=== PATIENT | male | born 1960 | race Caucasian/White ===

== ENCOUNTER 2021-06-13 14:15 | Observation (INO) ==
[2021-06-13] MEDS ORDERED: ALUMINUM/MAGNES/SIMETH MAX STR 30 ML UDCUP PO PRN (14:20)
[2021-06-13] MEDS ORDERED: NICOTINE 21 MG/24 HR PATCH TRANSDERM PRN (14:20)
[2021-06-13] MEDS ORDERED: ZALEPLON 5 MG CAPSULE PO PRN (14:20)
[2021-06-13] MEDS ORDERED: PROMETHAZINE 25 MG TABLET PO PRN (14:20)
[2021-06-13] MEDS ORDERED: MAGNESIUM SULF RIDER 2 GM/50 ML PREMIX IV PRN (14:20)
[2021-06-13] MEDS ORDERED: ONDANSETRON 4 MG/2 ML VIAL IV PRN (14:20)
[2021-06-13] MEDS ORDERED: guaiFENesin/DM ER 600-30 MG TABLET PO PRN (14:20)
[2021-06-13] MEDS ORDERED: DOCUSATE SODIUM 100 MG CAPSULE PO PRN (14:20)
[2021-06-13] MEDS ORDERED: ACETAMINOPHEN 325 MG TABLET PO PRN (14:20)
[2021-06-13] MEDS ORDERED: hydrALAZINE 20 MG/1 ML VIAL IV PRN (14:20)
[2021-06-13] MEDS ORDERED: MORPHINE 2 MG/1 ML SYRINGE IV PRN (14:20)
[2021-06-13] MEDS ORDERED: MAGNESIUM SULF RIDER 4 GM/100 ML PREMIX IV PRN (14:20)
[2021-06-13] MEDS ORDERED: diphenhydrAMINE CAP 25 MG CAPSULE PO PRN (14:20)
[2021-06-13] MEDS ORDERED: POTASSIUM CHLORIDE 20 MEQ TABLET PO PRN (14:20)
[2021-06-13 17:30] LABS: Basophils # 0.1 10*3/uL (0.0-0.2); Basophils % 1.3 % (0.0-0.8); Eosinophils # 0.4 10*3/uL (0.0-0.87); Eosinophils % 5.5 % (0.00-10.9); Hematocrit 50.2 VOL% (42.0-52.0); Hemoglobin 16.5 GM/DL (14.0-18.0); Immature Granulocytes % 0.3 %; Immature Granulocytes Absolute 0.02 #; Lymphocytes # 1.8 10*3/uL (1.4-4.0); Lymphocytes % 26.4 % (21.2-54.2); Mean Corpuscular HGB Conc 32.9 GM/DL (32-36); Mean Corpuscular Volume 93.7 FL (87-102); Mean Platelet Volume 10.6 FL (9.6-12.0); Monocytes % 9.5 % (1.7-12.7); Platelet Count 287 T/CUMM (130-400); Red Blood Count 5.36 MC/CUMM (3.8-5.5); Red Cell Distribution Width 13.1 % (9.3-17.3)
[2021-06-13 17:55] LABS: Albumin 3.6 G/DL (3.4-5.0); Bilirubin,Total 0.9 MG/DL (0.20-1.00); Calcium 8.9 MG/DL (8.5-10.1); Osmolality,Calculated 273.7 MOS/KG (273-304); Potassium 3.6 MMOL/L (3.5-5.1); Total Protein 6.9 G/DL (6.4-8.2)
[2021-06-13] MEDS: NITROGLYCERIN 2% OINT 1 INCH/GM PACK TOP SCH (18:38)
[2021-06-14] MEDS: NITROGLYCERIN 2% OINT 1 INCH/GM PACK TOP SCH ×5 (00:41→23:04)
[2021-06-14 05:42] LABS: Blood Urea Nitrogen 15 MG/DL (7-18); Calcium 8.3 MG/DL (8.5-10.1); Carbon Dioxide 26 MMOL/L (21-32); Estimated Glom Filtration Rate 94 ML/MIN; Glucose 103 MG/DL (74-106); HDL Cholesterol 38 MG/DL (40-60); Osmolality,Calculated 279.4 MOS/KG (273-304); Potassium 3.8 MMOL/L (3.5-5.1); Risk Ratio 4.61; Sodium 140 MMOL/L (136-145); Triglycerides 117 MG/DL (2-150); VLDL Cholesterol 23.4 MG/DL
[2021-06-14] MEDS ORDERED: diphenhydrAMINE CAP 25 MG CAPSULE PO ONE (07:38)
[2021-06-14] MEDS ORDERED: DIAZEPAM 5 MG TABLET PO ONE (07:38)
[2021-06-14] MEDS ORDERED: SIMVASTATIN 20 MG TABLET PO SCH (09:00)
[2021-06-14] MEDS: PANTOPRAZOLE 40 MG TABLET PO SCH (09:42)
[2021-06-14] MEDS: ASPIRIN EC 81 MG TABLET PO SCH (09:42)
[2021-06-14] MEDS: SODIUM CHLORIDE 0.45% 1,000 ML IV SCH ×2 (09:42→18:18)
[2021-06-14] MEDS ORDERED: HEPARIN/NACL 0.9% 2 UNITS/ML 3,000 UNIT/1,500 ML BAG IV ONE (12:14)
[2021-06-14] MEDS ORDERED: NITROGLYCERIN DRIP 50 MG/250 ML BOTTLE IV ONE (12:16)
[2021-06-14] MEDS ORDERED: VERAPAMIL 5 MG/2 ML VIAL ONE (12:16)
[2021-06-14] MEDS ORDERED: LIDOCAINE 1% 20 ML VIAL ONE (12:16)
[2021-06-14] MEDS ORDERED: HEPARIN 5,000 UNIT/1 ML VIAL ONE ×2 (12:16→12:58)
[2021-06-14] MEDS ORDERED: MIDAZOLAM 2 MG/2 ML VIAL ONE ×2 (12:35→12:48)
[2021-06-14] MEDS ORDERED: fentaNYL 100 MCG/2 ML VIAL ONE (12:36)
[2021-06-14] MEDS ORDERED: CLOPIDOGREL 300 MG TABLET ONE (12:57)
[2021-06-15] MEDS: SODIUM CHLORIDE 0.45% 1,000 ML IV SCH (02:28)
[2021-06-15 05:13] LABS: Basophils # 0.1 10*3/uL (0.0-0.2); Basophils % 1.1 % (0.0-0.8); Eosinophils # 0.3 10*3/uL (0.0-0.87); Eosinophils % 4.3 % (0.00-10.9); Hematocrit 44.5 VOL% (42.0-52.0); Hemoglobin 14.5 GM/DL (14.0-18.0); Immature Granulocytes % 0.2 %; Immature Granulocytes Absolute 0.01 #; Lymphocytes # 1.1 10*3/uL (1.4-4.0); Lymphocytes % 18.1 % (21.2-54.2); Mean Corpuscular HGB Conc 32.6 GM/DL (32-36); Mean Corpuscular Volume 94.9 FL (87-102); Mean Platelet Volume 11.2 FL (9.6-12.0); Monocytes % 11.3 % (1.7-12.7); Platelet Count 243 T/CUMM (130-400); Red Blood Count 4.69 MC/CUMM (3.8-5.5); White Blood Count 6.3 T/CUMM (4-12)
[2021-06-15 05:37] LABS: Osmolality,Calculated 281.4 MOS/KG (273-304); Potassium 3.8 MMOL/L (3.5-5.1)
[2021-06-15] MEDS: NITROGLYCERIN 2% OINT 1 INCH/GM PACK TOP SCH (06:35)
[2021-06-15 07:35] VITALS: BP 117/86
[2021-06-15] MEDS: PANTOPRAZOLE 40 MG TABLET PO SCH (08:51)
[2021-06-15] MEDS: ASPIRIN EC 81 MG TABLET PO SCH (08:51)
[2021-06-15] MEDS ORDERED: ROSUVASTATIN 20 MG TABLET PO SCH (09:00)
[2021-06-15] MEDS ORDERED: CLOPIDOGREL 75 MG TABLET PO SCH (09:00)
== END 2021-06-15 11:56 | disposition home or self-care (01) ==
LOC: N.TELEN
PROVIDERS: ADMIT Internal Medicine Cardiovascular Disease; ATTEND Internal Medicine Cardiovascular Disease
PROC: CLCCHCL (ICD-10-PCS; 2021-06-14 13:45)